=== PATIENT | female | born 1955 | race Caucasian/White ===

== ENCOUNTER 2017-01-24 09:49 | Emergency (ER) | payer MEDICAID ==
[~2017-01-24] VITALS: Ht 160 cm; Wt 70.3 kg
[2017-01-24 09:59] VITALS: BP 123/78
== END 2017-01-24 10:39 | disposition home or self-care (01) ==
LOC: ED 09:49
DX: H10.13 Acute atopic conjunctivitis, bilateral (principal); I10 Essential (primary) hypertension; E78.5 Hyperlipidemia, unspecified